=== PATIENT | female | born 2000 | race Caucasian/White ===

== ENCOUNTER 2019-02-05 15:22 | Emergency (ER) | payer MEDICAID ==
[~2019-02-05] VITALS: Ht 152.4 cm; Wt 43.2 kg
[2019-02-05 15:47] VITALS: BP 137/98
--- NOTE | 2019-02-05 15:54 | NUR ---
urine cup handed to pt for sample---returned to [facility] for avaiable room for md prince
--- NOTE | 2019-02-05 16:37 | NUR ---
PT AMBULATED TO ER BED 1
--- NOTE | 2019-02-05 16:42 | NUR ---
c/o intermittent anterior chest wall sharp pain, left sided with increased pain with deep inspiration x last night----denies recent uri symptoms adds awoke this am with lue heavy/tight admits to carrying heavy objects during work at [employer] denies sob, denies pain upon palpation lue 137[address]
[2019-02-05 17:41] VITALS: BP 121/78
--- NOTE | 2019-02-05 17:41 | NUR ---
Patient discharged with v/s stable. Written and verbal after care instructions given and explained. Patient alert, oriented and verbalized understanding of instructions. Ambulatory with steady gait. All questions addressed prior to discharge. ID band removed. Patient advised to follow up with PMD. Rx of MACROBID, ACETAMINOPHEN & OMEPRAZOLE given. Patient educated on indication of medication including possible reaction and side effects. Opportunity to ask questions provided and answered.
== END 2019-02-05 17:41 | disposition home or self-care (01) ==
LOC: MED 15:22
DX: K21.9 Gastro-esophageal reflux disease without esophagitis (principal); N39.0 Urinary tract infection, site not specified; I10 Essential (primary) hypertension; Z86.79 Personal history of other diseases of the circulatory system; Z88.0 Allergy status to penicillin
CPT/HCPCS: 71045; 81002; 81025; 93005; 99283